=== PATIENT | female | born 1955 | race Two or more races ===

== ENCOUNTER → 2017-05-26 | Outpatient (CLI) | payer OTHER ==
[~2017-05-26] MED LIST: DIOVAN320 MG; INDERAL LA120 MG PO; LYRICA100 MG PO
== END | disposition home or self-care (01) ==
LOC: PPH VACUNA 07:39
DX: Z23 Encounter for immunization (principal)

== ENCOUNTER → 2018-09-01 | Outpatient (CLI) | payer OTHER | END | disposition home or self-care (01) | LOC: MAMO-SONO 08-31 08:15 | DX: N60.11 Diffuse cystic mastopathy of right breast (principal); N60.12 Diffuse cystic mastopathy of left breast; Z12.31 Encounter for screening mammogram for malignant neoplasm of breast ==

== ENCOUNTER 2019-01-25 14:14 | Outpatient (CLI) | payer OTHER | END 2019-01-25 14:16 | disposition home or self-care (01) | LOC: RAD 14:14 | DX: M54.6 Pain in thoracic spine (principal) ==